=== PATIENT | female | born 1975 | race Caucasian/White ===

== ENCOUNTER → 2016-08-19 | Day surgery (SDC) | payer OTHER ==
[~2016-08-19] MED LIST: ALPR0.5T3 PO; ATEN50TA7 PO; ESTR2TAB PO; LEVO125T4 PO; LIDOCAINE HCL 1% 20 ML VIAL OTHER ONE; MEDR10TA7 PO; MELO-1 PO; METF500T PO; PERC5TAB12 PO; PROPOFOL 200 MG/20 ML AMP IV ONE; SODIUM CHLORIDE 0.9% INJ 10 ML ONE; TRIAMCINOLONE ACETONIDE 40 MG/ML VIAL ONE; VALA500T PO; ZOLP10TA3 PO; ZYRT10CA PO; oxyCODONE/ACETAMINOPHEN 5 MG/325 MG TAB ONE
== END | disposition home or self-care (01) ==
LOC: ESDC 07:56
PROVIDERS: ATTEND Anesthesiology Pain Medicine
DX: M51.26 Other intervertebral disc displacement, lumbar region (principal)
CPT/HCPCS: 62323; J3301